=== PATIENT | female | born 1965 | race Caucasian/White ===

== ENCOUNTER 2017-11-12 13:36 | Emergency (ER) | payer BC ==
[2017-11-12] MEDS ORDERED: diPHENhydraMINE IV* 50 MG/ML 1 ml VIAL (BENADRYL) IV ONE (14:36)
[2017-11-12] MEDS ORDERED: NS 0.9% 1000 ML* 1,000 ML IV ONE (14:36)
[2017-11-12] MEDS ORDERED: Metoclopramide IV* 5 MG/ML 2 ML VIAL IV ONE (14:36)
[2017-11-12 14:55] LABS: ABS Basophils 0.1 10^3/ul (0-0.2); ABS Eosinophils 0.1 10^3/ul (0-0.6); ABS Lymphocytes 0.9 10^3/ul (1.0-4.8); ABS Monocytes 0.6 10^3/ul (0-0.8); ABS Neutrophils 4.5 10^3/ul (1.5-7.7); ABS Nucleated RBC 0 10^3/ul; Eosinophil % 1.8 % (0-6); Hematocrit 37 % (35-47); Lymphocyte % 14.5 % (25-47); Mean Corpuscular HGB Conc 35 g/dl (31-36); Mean Corpuscular Hemoglobin 31 pg (27-31); Mean Corpuscular Volume 87 fL (80-97); Mean Platelet Volume 7.4 um3 (7.4-10.4); Nucleated Red Blood Cells % 0.1; Platelet Count 231 10^3/ul (150-450); Red Blood Count 4.25 10^6/ul (4.0-5.4); Red Cell Distribution Width 14 % (10.5-15); White Blood Count 6.2 10^3/ul (3.5-10.8)
[2017-11-12 15:17] LABS: EGFR Non-African American 93.7 (>60)
[2017-11-12 15:24] LABS: Urine Appearance Clear; Urine Blood Negative (Negative); Urine Color Yellow; Urine Ketones Negative (Negative); Urine Protein Negative (Negative); Urine Specific Gravity 1.015 (1.010-1.030); Urine Urobilinogen Negative (Negative)
--- NOTE | 2017-11-12 15:45 | RAD ---
INDICATION: Headaches COMPARISON: None TECHNIQUE: Noncontrast axial source images were acquired from the skull base to the vertex. FINDINGS: Ventricles/sulci: The ventricles and cisterns are normal in size and configuration for age. Brain parenchyma: There is no focal parenchymal finding, evidence of intracranial mass, or intracranial mass effect. Intracranial hemorrhage:None. Extra-axial spaces: There are no abnormal extra axial fluid collections or evidence of extra-axial mass. Calvarium: There is no calvarial fracture or other calvarial abnormality. Scalp: There is no evidence of scalp or extracalvarial soft tissue abnormality. Paranasal sinuses/mastoid: The paranasal sinuses and mastoid air cells are clear. Other: None. IMPRESSION: NEGATIVE EXAMINATION
--- NOTE | 2017-11-12 15:58 | RAD ---
Indication: Sinus pain. CT of the sinuses was obtained in the axial plane. Sagittal and coronal reconstructed images were obtained. Frontal sinuses are clear. Ethmoid air cells and sphenoid sinuses are clear. Maxillary sinuses are unremarkable. There is no evidence of fracture. The orbits are intact. Zygomatic arch is intact. The mandible demonstrates no fracture. Pterygoid plates and hard palate are unremarkable. Skull base demonstrates no fracture. IMPRESSION: No fracture of the facial bones is noted. Paranasal sinuses are unremarkable.
--- NOTE | 2017-11-12 16:02 | RAD ---
INDICATION: Cough COMPARISON: None. TECHNIQUE: Single AP view of the chest was obtained. FINDINGS: The heart and mediastinum exhibit normal size and contour. The lungs are grossly clear. There is no evidence of a large pleural effusion. Visualized bones are normal for the patient's age. IMPRESSION: No radiographic evidence for acute cardiopulmonary abnormality on this single AP view chest x-ray.
[2017-11-12] MEDS ORDERED: Ketorolac INJ* 30 MG/ML 1 ML VIAL IV PUSH ONE (16:16)
[2017-11-12 17:53] VITALS: BP 110/69
--- NOTE | 2017-11-13 20:02 | ED ---
Antonina Root Julia, scribed for Veronica Varghese MD on 11/12/17 at 1431 . Headache - HPI Summary HPI Summary: This patient is a 52 year old F presenting to [facility] with a chief complaint of a sinus headache since last night after taking mucinex due to recent productive cough. Patient reports, nausea, and recent sore throat. Patient denies rashes. The patient rates the pain 9/10 in severity. Pt reports recent dust exposure. - History Of Current Complaint Chief Complaint: EDHeadache Stated Complaint: HEADACHE/NAUSEA Time Seen by Provider: 11/12/17 14:21 Hx Obtained From: Patient Onset/Duration: Started days ago, Worse Since - last night Initially Headache Was: Initial Pain Scale(0-10)= - 9 Timing: Constant Location of Headache: Frontal, Other: - sinus Aggravating Factor: Bright Lights Associated Signs And Symptoms: Nausea, Sinus Pressure, Neck Pain - Allergies/Home Medications Allergies/Adverse Reactions: Allergies Allergy/AdvReac Type Severity Reaction Status Date / Time No Known Allergies Allergy Verified 11/12/17 13:44 Home Medications: Home Medications Cholecalciferol TAB* [Vitamin D TAB*] 1,000 unit PO DAILY 11/12/17 [History Confirmed 11/12/17] PMH/Surg Hx/FS Hx/Imm Hx Cardiovascular History: Reports: Hx Hypertension Respiratory History: Reports: Hx Asthma, Other Respiratory Problems/Disorders - has albuteral inhaler, hasn't used since FALL 2011 GI History: Reports: Other GI Disorders - Diffuse abd pain x 5 days, worsened today, now radiating to lower back History: Reports: Other Problems/Disorders - October 2011 kidney or bladder infection requiring abx to resolve Sensory History: Reports: Hx Contacts or Glasses - WILL WEAR GLASSES DAY OF SURGERY Opthamlomology History: Reports: Hx Contacts or Glasses - WILL WEAR GLASSES DAY OF SURGERY Neurological History: Reports: Hx Migraine - Hx OF, RELATES IT TO ALLERGIES, NOT OFTEN Psychiatric History: Comment Only: Hx Anxiety - Hx OF, NOT ON CURRENT MEDS, Hx Depression - Hx OF , NOT ON CURRENT MEDS - Cancer History Hx Radiation Therapy: No - Surgical History Surgery Procedure, Year, and Place: [place] [facility] [place] [facility] [place] [facility] [place]. [id number] UMBILICAL HEARNIA REPAIR CM. 12/08/12 Partial Hysterectomy. T&A Hx Anesthesia Reactions: Yes - USUALLY N/V, OK 2004 Infectious Disease History: No Infectious Disease History: Denies: Traveled Outside the [place] in Last 30 Days - Family History Known Family History: Positive: Cardiac Disease - Social History Alcohol Use: Occasionally Substance Use Type: Reports: None Smoking Status (MU): Never Smoked Tobacco Review of Systems Positive: Photophobia Positive: Sore Throat Positive: Cough Positive: Nausea Positive: Myalgia - neck pain Negative: Rash Positive: Headache All Other Systems Reviewed And Are Negative: Yes Physical Exam - Summary Physical Exam Summary: Appearance: Well-appearing, Well-nourished Skin: Warm, Dry, No rash Eyes: Normal, PERRL, EOMI, sclera anicteric ENT: Tenderness to palp to maxillary and facial area Neck: Supple, nontender Respiratory: Clear to auscultation Cardiovascular: S1, S2, no murmur, no rub, no gallop Abdomen: Soft, nontender, no organomegaly Bowel sounds: Present Musculoskeletal: Normal, Strength/ROM Intact, no edema, pulses symmetrical Neurological: Normal, A&Ox3, cranial nerves II-XII WNL, follows commands, gait not tested, sensation intact to pin and light touch, no dysmetria finger to nose , no meningeal sign with exam Psychiatric: affect normal, behavior appropriate, dressed appropriately, judgment intact Triage Information Reviewed: Yes Vital Signs On Initial Exam: Initial Vitals Temp Pulse Resp BP Pulse Ox 98.9 F 80 18 142/86 98 11/12/17 13:40 11/12/17 13:40 11/12/17 13:40 11/12/17 13:40 11/12/17 13:40 Vital Signs Reviewed: Yes Diagnostics - Vital Signs Vital Signs Temp Pulse Resp BP Pulse Ox 11/12/17 14:25 20 119/73 95 11/12/17 13:40 98.9 F 80 18 142/86 98 - Laboratory Lab Results: Lab Results 11/12/17 11/12/17 11/12/17 Range/Units 14:48 14:48 15:12 WBC 6.2 (3.5-10.8) 10^3/ul RBC 4.25 (4.0-5.4) 10^6/ul Hgb 13.0 (12.0-16.0) g/dl Hct 37 (35-47) % MCV 87 (80-97) fL MCH 31 (27-31) pg MCHC 35 (31-36) g/dl RDW 14 (10.5-15) % Plt Count 231 (150-450) 10^3/ul MPV 7.4 (7.4-10.4) um3 Neut % (Auto) 72.8 (38-83) % Lymph % (Auto) 14.5 L (25-47) % [place] % (Auto) 10.1 H (0-7) % Eos % (Auto) 1.8 (0-6) % Baso % (Auto) 0.8 (0-2) % Absolute Neuts (auto) 4.5 (1.5-7.7) 10^3/ul Absolute Lymphs (auto) 0.9 L (1.0-4.8) 10^3/ul Absolute Monos (auto) 0.6 (0-0.8) 10^3/ul Absolute Eos (auto) 0.1 (0-0.6) 10^3/ul Absolute Basos (auto) 0.1 (0-0.2) 10^3/ul Absolute Nucleated RBC 0 10^3/ul Nucleated RBC % 0.1 ESR 32 H (0-30) mm/Hr Sodium 140 (139-145) mmol/L Potassium 3.7 (3.5-5.0) mmol/L Chloride 103 (101-111) mmol/L Carbon Dioxide 29 (22-32) mmol/L Anion Gap 8 (2-11) mmol/L BUN 13 (6-24) mg/dL Creatinine 0.66 (0.51-0.95) mg/dL Est GFR ( Amer) 120.5 (>60) Est GFR (Non-Af Amer) 93.7 (>60) BUN/Creatinine Ratio 19.7 (8-20) Glucose 96 (70-100) mg/dL Calcium 9.8 (8.6-10.3) mg/dL Total Bilirubin 0.50 (0.2-1.0) mg/dL AST 26 (13-39) U/L ALT 32 (7-52) U/L Alkaline Phosphatase 73 (34-104) U/L C-Reactive Protein 14.30 H (< 5.00) mg/L Total Protein 7.3 (6.4-8.9) g/dL Albumin 4.6 (3.2-5.2) g/dL Globulin 2.7 (2-4) g/dL Albumin/Globulin Ratio 1.7 (1-3) Urine Color Urine Appearance Urine pH (5-9) Ur Specific [place] (1.010-1.030) Urine Protein (Negative) Urine Ketones (Negative) Urine Blood (Negative) Urine Nitrate (Negative) Urine Bilirubin (Negative) Urine Urobilinogen (Negative) Ur Leukocyte Esterase (Negative) Urine Glucose (Negative) Group A Strep Rapid Negative (Negative) 11/12/17 Range/Units 15:16 WBC (3.5-10.8) 10^3/ul RBC (4.0-5.4) 10^6/ul Hgb (12.0-16.0) g/dl Hct (35-47) % MCV (80-97) fL MCH (27-31) pg MCHC (31-36) g/dl RDW (10.5-15) % Plt Count (150-450) 10^3/ul MPV (7.4-10.4) um3 Neut % (Auto) (38-83) % Lymph % (Auto) (25-47) % [place] % (Auto) (0-7) % Eos % (Auto) (0-6) % Baso % (Auto) (0-2) % Absolute Neuts (auto) (1.5-7.7) 10^3/ul Absolute Lymphs (auto) (1.0-4.8) 10^3/ul Absolute Monos (auto) (0-0.8) 10^3/ul Absolute Eos (auto) (0-0.6) 10^3/ul Absolute Basos (auto) (0-0.2) 10^3/ul Absolute Nucleated RBC 10^3/ul Nucleated RBC % ESR (0-30) mm/Hr Sodium (139-145) mmol/L Potassium (3.5-5.0) mmol/L Chloride (101-111) mmol/L Carbon Dioxide (22-32) mmol/L Anion Gap (2-11) mmol/L BUN (6-24) mg/dL Creatinine (0.51-0.95) mg/dL Est GFR ( Amer) (>60) Est GFR (Non-Af Amer) (>60) BUN/Creatinine Ratio (8-20) Glucose (70-100) mg/dL Calcium (8.6-10.3) mg/dL Total Bilirubin (0.2-1.0) mg/dL AST (13-39) U/L ALT (7-52) U/L Alkaline Phosphatase (34-104) U/L C-Reactive Protein (< 5.00) mg/L Total Protein (6.4-8.9) g/dL Albumin (3.2-5.2) g/dL Globulin (2-4) g/dL Albumin/Globulin Ratio (1-3) Urine Color Yellow Urine Appearance Clear Urine pH 7.0 (5-9) Ur Specific [place] 1.015 (1.010-1.030) Urine Protein Negative (Negative) Urine Ketones Negative (Negative) Urine Blood Negative (Negative) Urine Nitrate Negative (Negative) Urine Bilirubin Negative (Negative) Urine Urobilinogen Negative (Negative) Ur Leukocyte Esterase Negative (Negative) Urine Glucose Negative (Negative) Group A Strep Rapid (Negative) Result Diagrams: 11/12/17 14:48 11/12/17 14:48 Lab Statement: Any lab studies that have been ordered have been reviewed, and results considered in the medical decision making process. - Radiology CXR Radiology Interpretation Completed By: Radiologist - No radiographic evidence for acute cardiopulmonary abnormality on this single AP view chest x-ray. ED Physician has reviewed this report. - CT Brain CT CT Interpretation Completed By: Radiologist - NEGATIVE EXAMINATION. ED Physician has reviewed this report. Maxillofacial CT CT Interpretation Completed By: Radiologist - No fracture of the facial bones is noted. Paranasal sinuses are unremarkable. ED Physician has reviewed this report. Re-Evaluation - Re-Evaluation 1 Re-Evaluation Time: 16:15 Change: Improved - Pts pain has improved to a 7/10. Headache Course/Dx - Course Course Of Treatment: 52 y/o F presents to ED with headache and cough. Workup is remarkable for elevated inflammatory markers. Rapid stress test is negative. Brain and Maxillofacial CT are negative. CXR is negative. Pt is given one liter of IV fluids, reglan and toradol. Pt reports complete resolution of symptoms. Pt will follow up with her doctor. - Diagnoses Provider Diagnoses: Headache Discharge - Sign-Out/Discharge Documenting (check all that apply): Discharge/Admit/Transfer - Discharge Plan Condition: Stable Disposition: HOME Prescriptions: Ketorolac TAB * [Toradol TAB *] 10 mg PO Q6H #12 tab Patient Education Materials: Acute Headache (ED) Referrals: Chelsea Amaya ASSOCIATE APPLICATION DEVELOPER [Primary Care Provider] - If Needed (Follow up with your primary care physician regarding your symptoms.) - Billing Disposition and Condition Condition: STABLE Disposition: HOME The documentation as recorded by the Antonina osullivan Julia accurately reflects the service I personally performed and the decisions made by me, Veronica Varghese MD.
== END 2017-11-12 17:51 | disposition home or self-care (01) ==
LOC: ED 13:36
DX: R51 Headache (principal); R11.0 Nausea; M54.2 Cervicalgia; J02.9 Acute pharyngitis, unspecified
CPT/HCPCS: 36415; 70450; 70486; 71045; 80053; 81003; 85025; 85652; 86140; 87651; 96374; 96375; 99283; J1200; J1885; J2765